=== PATIENT | female | born 1995 | race Caucasian/White ===

== ENCOUNTER 2017-04-09 01:01 | Emergency (ER) | payer OTHER ==
--- NOTE | ~2017-04-09 | CT4 ---
[facility] A Service [facility] RADIOLOGY TEXT RESULTS PATIENT: DONITA ADAMS LOCATION: [facility] : [birth year] UNIT #: [id number] AGE: [address]: WENCESLAO BURGER APRN SEX: F ORDER DR: [id number] [facility] [address] [place], [place] [address] [id number] MR#: [id number] Acc #: [id number] NAME: DONITA ADAMS : 1995 SEX: F STUDY DATE/TIME: 04/09/2017 UNIT: [facility] ROOM: STUDY DESCRIPTION: CT Abd and Pelv Wo Cont Attending Physician: Wenceslao Burger Aprn Ordering Physician: Wenceslao Burger Aprn Primary Care Physician: Kenney Dempsey A.P.R.N. MEDICAL IMAGING REPORT This report is preliminary unless electronic signature is present EXAM Abdomen and pelvis CT 04/09 at 03:35 INDICATIONS Right flank pain with lower abdominal pain and nausea for 3 days. TECHNIQUE Axial noncontrast images were obtained through the abdomen and pelvis. Multiplanar reformats were obtained. Comparison made with 02/11/2016. The CT exam was performed with one or more of the following radiation dose reduction techniques: automatic exposure control, adjustment of mA and/or kV according to patient size, and iterative reconstruction. FINDINGS Abdomen: Lung bases are clear. Gallbladder is normal. Unenhanced solid organs are normal. No renal or ureteral stones are seen. There is no hydronephrosis. Unopacified GI tract is normal. Pelvis: The bladder is normal. No lower ureteral stones are identified. GI tract evaluation is limited without oral contrast. Unopacified GI tract is grossly normal. The appendix is normal. IMPRESSION 1. No acute findings in the abdomen and pelvis. 2. No renal or ureteral stones. Hydronephrosis. 3. Grossly normal unopacified GI tract, including the appendix. Dictated by... Tonny Muhammad Jr., M.D. [facility] A Service of [facility] RADIOLOGY TEXT RESULTS PATIENT: DONITA ADAMS LOCATION: [facility] : [birth year] UNIT #: [id number] AGE: [address]: WENCESLAO BURGER APRN SEX: F ORDER DR: THIS IS AN ELECTRONICALLY VERIFIED REPORT Tonny Muhammad Jr., M.D. at 04/09/2017 9:25 PM CHARLEEN/alberto TD: 04/09/2017 11:20 JOB #: [id number] MEDICAL IMAGING REPORT Page 1 of 1 COPY
[~2017-04-09 01:01] MED LIST: CILOXAN5 ML OP; FLEXERIL10 M1 PO; IBUPR PO; IBUPROFEN PO; IBUPROFEN600 MG PO; KEFLEX PO; MOTRIN400 MG PO
[2017-04-09 01:38] LABS: URINE SOURCE CLEAN CATCH
[2017-04-09 01:43] LABS: URINE APPEARANCE CLEAR; URINE BILIRUBIN NEG (NEG); URINE BLOOD 1+ (NEG); URINE COLOR YELLOW; URINE GLUCOSE NEG (NEG); URINE KETONE NEG (NEG); URINE LEUKOCYTE ESTERASE 2+ (NEG); URINE NITRATE NEG (NEG); URINE PROTEIN NEG (NEG); URINE SPECIFIC GRAVITY 1.025 (1.003-1.035)
[2017-04-09 01:45] LABS: CULTURE INDICATED? YES; URINE BACTERIA AUWI 1+ (NEGATIVE); URINE SQUAMOUS EPITHELIAL CELL OCC /[HPF]
[2017-04-09 01:48] LABS: BASOPHIL% 0.5 % (0-2.5); EOSINOPHIL# 0.1 X10e3 (0-0.7); EOSINOPHIL% 1.9 % (0.0-7.0); HEMATOCRIT 36.5 % (35.0-45.0); HEMOGLOBIN 11.7 gm/dL (12.0-16.0); LYMPHOCYTE% 32.8 % (17.0-45.0); MEAN CELL VOLUME 74.2 FL (83-96); MEAN CORPUSCULAR HEMOGLOBIN 23.7 PG (28-34); MEAN PLATELET VOLUME 8.1 FL (6.5-11.5); MONOCYTE# 0.5 X10e3 (0-1.0); MONOCYTE% 8.3 % (3.0-12.0); NEUTROPHIL# 3.4 X10e3 (1.5-7.1); NEUTROPHIL% 56.5 % (40-75); PLATELET COUNT 253 X10e3 (140-420); RED BLOOD COUNT 4.92 X10e (3.90-5.30); RED CELL DISTRIBUTION WIDTH 17.5 % (11.0-15.5)
[2017-04-09 01:50] LABS: DIFF IND NO
[2017-04-09 02:14] LABS: ALBUMIN SERUM 4.7 g/dL (3.5-5.0); BILIRUBIN, DIRECT 0.1 mg/dL (0.0-0.2); BILIRUBIN,INDIRECT 0.2 mg/dL (0.0-0.9); BILIRUBIN,TOTAL 0.3 mg/dL (0.2-2.0); BUN/CREATININE RATIO 17.5; CALCIUM SERUM 8.6 mg/dL (8.4-10.2); CREATININE SERUM 0.8 mg/dL (0.6-1.4); POTASSIUM 3.3 mmol/L (3.5-5.1); PROTEIN TOTAL SERUM 7.7 g/dL (6.0-8.3)
[2017-04-11 23:39] LABS: CHLAMYDIA TRACH Not Detected (Not Detected); N GONOR Detected (Not Detected)
== END 2017-04-09 04:40 | disposition home or self-care (01) ==
LOC: CED 01:01 → CFTX 02:28 → CED 04:40
PROVIDERS: Nurse Practitioner Family
DX: N93.8 Other specified abnormal uterine and vaginal bleeding (principal); F17.210 Nicotine dependence, cigarettes, uncomplicated
CPT/HCPCS: 36415; 74176; 80048; 80076; 81003; 82150; 83690; 85025; 87086; 87491; 87591; 87808; 87905; 99284

== ENCOUNTER 2017-04-20 22:22 | Emergency (ER) | payer OTHER ==
[2017-04-20 23:41] LABS: URINE SOURCE CLEAN CATCH
[2017-04-20 23:44] LABS: URINE APPEARANCE CLOUDY; URINE BLOOD NEG (NEG); URINE COLOR DK YELLOW; URINE GLUCOSE NEG (NEG); URINE KETONE TRACE (NEG); URINE LEUKOCYTE ESTERASE TRACE (NEG); URINE NITRATE POS (NEG); URINE PH 5.5 (5-8); URINE PROTEIN TRACE (NEG); URINE SPECIFIC GRAVITY 1.036 (1.003-1.035)
[2017-04-20 23:47] LABS: CULTURE INDICATED? YES; URINE BACTERIA AUWI 4+ (NEGATIVE); URINE SQUAMOUS EPITHELIAL CELL OCC /[HPF]; UWBCS1 AUWI 25-50 (0-5)
[2017-04-20 23:51] LABS: URINE BILIRUBIN NEG (NEG)
== END 2017-04-21 00:20 | disposition home or self-care (01) ==
LOC: CED 22:22
DX: N73.0 Acute parametritis and pelvic cellulitis (principal)
CPT/HCPCS: 81003; 87086; 87088; 87186; 96374; 99284; J0696